=== PATIENT | female | born 1970 | race Caucasian/White ===

== ENCOUNTER 2025-04-26 20:27 | Emergency (ER) | payer OTHER, SELFPAY ==
[2025-04-26 20:33] VITALS: BP 112/48; PULSE 76; RESP 18; TEMP 36.9; O2SAT 97; BMI 22.9
--- OUTSIDE RECORDS SUMMARY | 2025-04-26 21:19 | XMS_ITS | Clinical Summary ---
Author Organization [facility] Address [address] [place] [address] Phone Care Team Providers Care Veterinary Technician Instructor Name Role Phone Amilcar Rice MD Primary Care Provider [phone] Allergies Active Allergy Reactions Criticality Noted Date Comments Metoclopramide Unknown 09/08/2020 Sensitivity feels off Sensitivity feels off Sensitivity feels off Sensitivity feels off Pollen Extracts 03/17/2018 Seasonal allergies Medications fluticasone propionate (FLOVENT DISKUS) 50 mcg/actuation diskus inhaler Inhale 1 puff by mouth. Active albuterol HFA (PROAIR HFA ; PROVENTIL HFA ; VENTOLIN HFA) 90 mcg/actuation inhaler 2 puffs inhaled q 4-6h as needed for chest tightness/SOB 05/01/20 21 Active albuterol 2.5 mg /3 mL (0.083 %) nebulizer solution albuterol sulfate 2.5 mg/3 mL (0.083 %) solution for nebulization Active buPROPion XL (WELLBUTRIN XL) 300 mg 24 hr tablet Take 1 tablet (300 mg total) by mouth 1 (one) time each day in the morning. 01/30/20 25 Active ondansetron ODT (ZOFRAN-ODT) [address] 1 TABLET ON THE TONGUE AND ALLOW TO DISSOLVE TWICE A DAY NEEDED FOR 7 DAYS 08/30/20 24 Active pantoprazole (Protonix) 20 mg EC tablet tablet(s) oral 05/01/20 21 Active predniSONE (DELTASONE) 10 mg tablet 4 Tablet(s) by mouth as needed 4 days then stop for asthma exacerbation 05/01/20 21 Active umeclidinium (Incruse Ellipta) 62.5 mcg/actuation inhalation 1 puff inhaled once a day 05/01/20 21 Active umeclidinium (Incruse Ellipta) 62.5 mcg/actuation inhalation Inhale by mouth. Ac tive valACYclovir (VALTREX) 1 gram tablet Take 1 tablet (1,000 mg total) by mouth. 05/22/20 21 Active Encounters Date Type Department Care Team Description 03/19/2025 Telephone [facility] [address] [place] [address] Amilcar Rice MD Referral (Attempt to reach pt, no response. aek) 02/16/2025 4:00 PM EDT Office Visit Orthopedic Surgery - [place] [address] [place] [address] Lo Avina, PA Bilateral carpal tunnel syndrome (Primary Dx); Acute pain of right shoulder from Last 3 Months Medical History Medical History Date Comments Bilateral carpal tunnel syndrome Abnormal uterine bleeding Arthritis Asthma Depression Hand arthritis Inflammatory arthritis Family History Medical History Relation Name Comments Ovarian cancer Aunt Bowel cancer decsd from complications for resection Colon cancer Father Prostate late 6 0s Colon polyps Sister with spontaneou s mutation and not genetic Relation Name Status Comments Aunt (Age 70) Father Sister Alive Social History Tobacco Use Types Packs/Day Years Used Date Smoking Tobacco: Never Smokeless Tobacco: Never Alcohol Use Standard Drinks/Week Comments Yes 0 (1 standard drink = 0.6 oz pur e alcohol) Comments Unknown Sex and Gender Information Value Date Recorded Sex Assigned at Not on file Legal Sex Female 6:57 AM EST Gender Identity Not on file Sexual Orientation Not on file Obstetrics History Last Filed Vital Signs Vital Sign Reading Time Taken Comments Blood Pressure 103/60 03/26/2023 1:57 PM EDT Pulse 71 03/26/2023 1:57 PM EDT Temperature - - Respiratory Rate - - Oxygen Saturation - - Inhaled Oxygen Concentration - - Weight 56.7 kg (125 lb) 02/16/2025 4:11 PM EDT Height 157.5 cm (5' 2 ) 02/16/2025 4:11 PM EDT Body Mass Index 22.86 02/16/2025 4:11 PM EDT Plan of Treatment Health Maintenance Due Date Last Done Comments Breast Cancer Screening 1969 Hepatitis B Vaccines (1 of 3 - 19+ 3-dose series) 1988 Pneumococcal Vaccine: 50+ Ye ars (1 of 2 - PCV) 1988 Pneumococcal Vaccine: Pediat rics (0 to 5 Years) and At-Risk Patients (6 to 64 Years) (1 of 2 - PCV) 1988 Cervical Cancer Screening: HPV 1990 Zoster Vaccines (1 of 2) 2019 Colorectal Cancer Screening: Colonoscopy 10/14/2022 Depression Screening 10/14/2022 HIV Screening 10/14/2022 Hepatitis C Screening 10/14/2022 Social Influencers of Health Screening 10/14/2022 COVID-19 Vaccine (1 - 2023-2 5 season) 2024 Influenza Vaccine (Season Ended) 2025 DTaP,Tdap,and Td Vaccines (2 - Td or Tdap) 06/10/2028 06/10/2018 HIB Vaccines Aged Out No longer eligi ble based on patient's age to complete this topic HPV Vaccines Aged Out No longer eligi ble based on patient's age to complete this topic Hepatitis A Vaccines Aged Out No long er eligible based on patient's age to complete this topic IPV Vaccines Aged Out No longer eligi ble based on patient's age to complete this topic MMR Vaccines Aged Out No longer eligi ble based on patient's age to complete this topic Meningococcal ACWY Vaccine Aged Out N o longer eligible based on patient's age to complete this topic Meningococcal B Vaccine Aged Out No l onger eligible based on patient's age to complete this topic RSV Immunization Patients Un nathaniel 20 months Aged Out No longer eligible b ased on patient's age to complete this topic Varicella Vaccines Aged Out No longer eligible based on patient's age to complete this topic Procedures Procedure Name Priority Date/Time Associated Diagnosis Comments MN INJECTION CARPAL TUNNEL THERAPEUTIC Routine 02/16/2025 4:00 PM EDT Bilateral carpal tunnel syndrome from Last 3 Months Results * MN INJECTION CARPAL TUNNEL THERAPEUTIC (02/16/2025 4:00 PM EDT) Narrative Lo Avina PA - 02/16/2025 4:00 PM EDT JERRY Pan ? 02/17/2025 ??8:37 AM Hand / UE Inj/Asp: bilateral carpal tunnel for carpal tunnel syndrome Details: 25 G needle, volar approach Medications (Right): 0.5 mL lidocaine 1 %; 20 mg triamcinolone acetonide 40 mg/mL Medications (Left): 0.5 mL lidocaine 1 %; 20 mg triamcinolone acetonide 40 mg/mL Informed Consent: ??Laterality: ??Bilateral ??Relevant images/test results available and reviewed: yes ?Health status cleared: ??Yes ??Procedure/treatment, purpose, treatment alternatives, risks/potential complications and benefits explained: yes ?Risk/complications/benefits details: ??Risks of infection, thinning of the skin and temporary skin discoloration discussed. ??Discussed risks of temporary increased pain after injection and swelling and mild redness at injection site for couple days. ??Explained occasionally cortisone injection can cause facial flushing temporarily. ??Benefits pain management. ??For postop injection pain ice, Tylenol and/or NSAIDs if patient can take ??Patient questions answered: yes ?Patient agrees, verbalizes understanding, and wants to proceed: yes ?Consent given by: ??Patient ??Informed consent discussion completed by Physician/DAREK with patient: ?? Verbal ??Pre-procedure timeout performed: yes ?? us Lo EDWARDS IN CLINIC/BEDSIDE ORDERABLES Final Result from Last 3 Months Insurance [employer] Care Teams Veterinary Technician Instructor Relationship Specialty Start Date End Date Amilcar Rice MD [address] [place] [address] PCP - General Internal Medicine 01/22/20
--- NOTE | 2025-04-26 22:40 | ED_ITS ---
HPI - Wound/Laceration General Chief Complaint: Wound/Laceration Stated Complaint: left hand laceration Time Seen by Provider: 04/26/25 22:12 Source: patient Mode of arrival: ambulatory Limitations: no limitations History of Present Illness ED Provider: HPI narrative: Patient is presenting with laceration to her left hand over the 1st webspace, this is not a 4.5 cm laceration this is a 1.5 cm laceration, tetanus is within 7 years but patient would like to be reduced at because this was advancing wire, no other injuries, she has bilateral carpal tunnel what steroid injections. Related Data Allergies Allergy/AdvReac Type Severity Reaction Status Date / Time No Known Allergies Allergy Verified 04/26/25 20:40 Review of Systems Constitutional: Constitutional: Reports as per [facility] Social History Social History Smoked in Last 30 Days: No Use of substances other than those prescribed or required for medical reasons: No Advance Directives: No Advance Directives Information Provided: No Patient : No Physical Exam Vital Signs: Vital Signs: Last Vital Signs Temp 98.4 F 04/26/25 20:33 Pulse 76 04/26/25 20:33 Resp 18 04/26/25 20:33 BP 112/48 L 04/26/25 20:33 Pulse Ox 97 04/26/25 20:33 O2 Del Method Room Air 04/26/25 20:33 BMI result Body Mass Index 22.9 Const: Other: Examination of left upper extremity full range of motion of the shoulder, elbow, wrist, she has full-thickness 1.5 cm laceration with bleeding that is controlled, radial ulnar pulses +2, no deficit radial ulnar median motor or sensory Medical Decision Making Medical Decision Making [facility] Narrative: This is a 1.5 cm laceration, 1st webspace left hand, there is no evidence for any tendinous injury, bony injury, no indication for x-rays, patient works with farm animals, recommend laceration but she did not feel that she is going to tolerate lidocaine injection so we opted out for a Dermabond and Steri-Strips see my discharge instructions, tetanus updated per her request. Procedures Laceration Laceration 1: Site: hand Side (If applicable): left Description: linear Depth: simple, single layer Pre-repair: irrigated extensively Size (cm): other (Dermabond, Steri-Strips) Discharge Plan Discharge Clinical Impression: Laceration Patient Disposition: Home, Self-Care Additional Instructions: You were evaluated with laceration to left hand, after discussion with you we opted out for closure of the skin with Dermabond and Steri-Strips, this was done after vigorous washing out of the wound, tetanus shot was also updated it is good for the next 10 years, you can zoey Tylenol as needed for pain or Motrin, you can keep the dressing applied in place for the rest of the day until tomorrow, thereafter you can remove, the area can get wet but do not pick at the Steri-Strips, as they come loose use scissors to trim the edges, it is very unlikely that this will get infected but if he see redness that is spreading, discharge of pus come back to the ER for re-evaluation. Otherwise follow up with the PCP. Referrals: Amilcar Rice MD [Primary Care Provider] - 1 week Print Language: Italian
[2025-04-26 22:49] VITALS: BP 106/62; PULSE 61; RESP 18; TEMP 36.7; O2SAT 97
[2025-04-26] MEDS: Diphth,Pertus(ACell),Tet Adult 0.5 ML SYRINGE IM (22:54)
== END 2025-04-26 23:00 | disposition home or self-care (01) ==
PROVIDERS: Emergency Provider Emergency Medicine; PCP Internal Medicine
DX: S61.412A Laceration without foreign body of left hand, initial encounter (principal); W26.8XXA Contact with other sharp object(s), not elsewhere classified, initial encounter; Y93.89 Activity, other specified; Y92.73 Farm field as the place of occurrence of the external cause; Y99.0 Civilian activity done for income or pay; Z23 Encounter for immunization
CPT/HCPCS: 12001; 90471; 90715; 99284

== ENCOUNTER 2025-07-22 23:32 | Emergency (ER) | payer OTHER, SELFPAY ==
--- NOTE | ~2025-07-22 | CT_ITS ---
CLINICAL HISTORY: head trauma CT head without contrast Comparison: None provided Findings: BRAIN: No acute infarct, hemorrhage, or mass effect. No abnormal atrophy. CSF SPACES: No hydrocephalus or effacement of basal cisterns. SKULL: No calvarial fracture. SINUSES: No significant mucosal thickening or effusion on limited views. ORBITS: Limited views are unremarkable. OTHER: Negative. IMPRESSION: 1. No acute intracranial findings. This document has been electronically signed by: Ashlee Ghotra MD on 07/23/2025 01:56:49
--- NOTE | 2025-07-22 23:34 | ED_ITS ---
HPI - Head Injury General Chief complaint: General Medical Stated complaint: head strike Time Seen by Provider: 07/22/25 23:46 Source: patient Limitations: no limitations History of Present Illness ED Provider: Valerie Bruner PA-C HPI Narrative: 55-year-old female who is otherwise healthy presents after head contusion. Patient was trying to medicate her horse, the horse stood up abruptly and struck her in the back of the head with a it is head. No loss consciousness, the patient does not use a blood thinner. Patient has developed nausea with a generalized headache. Denies dizziness, or neck pain. Related Data Allergies Allergy/AdvReac Type Severity Reaction Status Date / Time No Known Allergies Allergy Verified 07/22/25 23:39 Review of Systems Review of Systems: Yes all other systems are reviewed and are negative Constitutional: Constitutional: Denies fatigue, Denies fever(s) and Reports headache(s) ENT: Denies dizziness, Reports headache(s) and Denies neck pain Cardiovascular: Cardiovascular: Denies chest pain and Denies dyspnea Respiratory: Respiratory: Denies dyspnea Gastrointestinal: Gastrointestinal: Denies abdominal pain, Reports nausea and Denies vomiting Musculoskeletal: Musculoskeletal: Denies neck pain Neurologic: Denies dizziness and Reports headache(s) Endocrine: Endocrine: Denies fatigue PMFSH Past Medical History Attestation statement: The following information was validated with the patient. Physical Exam Vital Signs: Vital Signs: Last Vital Signs Temp 98.1 F 07/23/25 02:36 Pulse 69 07/23/25 02:36 Resp 18 07/23/25 02:36 BP 105/58 L 07/23/25 02:36 Pulse Ox 96 07/23/25 02:36 O2 Del Method Room Air 07/23/25 02:36 BMI result Body Mass Index 22.9 Const: Other: Alert well-appearing Orientation/consciousness: patient oriented x3 Neck: Neck: Yes full ROM Resp: Effort & Inspection: normal respiratory effort Cardio: Other: Normal peripheral perfusion Skin: Other: Warm dry no rash Neuro: General: patient oriented x3, gait normal, no focal motor deficits and CN's II-XI intact bilaterally Psych: Other: Cooperative Course Course Course Narrative: This is a RME preformed in triage by Marylin Ballard PA-C. Date:07/22/25, time 1134 pm. Patient presents with head injury. Just prior to arrival, pt's horse head smashed into the back of her head. PE: Cranial nerves II through XII intact, speech fluent and appropriate, no mnrfqt-[id number] ataxia, no dajl-qj-zndu ataxia, no palmar drift, strength 5+ throughout, sensory intact throughout to soft touch and equal bilaterally, no scalp hematoma or laceration, no midline tenderness step-offs or deformities of entire spine moving neck in all degrees with no difficulty, patient is taking 650 mg of tylenol. + headache (5/10), and light sensitivity tight eyes no visual changes no n/v, no prior concussions. no other injuries or pain. No anticoagulation. Work UP: Head CT Will defer full ROS and PE to treating provider. Patient will continued to be monitored in the interim. Medical Decision Making Medical Decision Making MDM Narrative: 55-year-old female who is otherwise healthy presents after head contusion. Patient was trying to medicate her horse, the horse stood up abruptly and struck her in the back of the head with a it is head. No loss consciousness, the patient does not use a blood thinner. Patient has developed nausea with a generalized headache. Denies dizziness, or neck pain. No chronic issues History: Per patient I have considered the following differential diagnoses: Concussion, intracranial hemorrhage, skull fracture Plan: CT of the brain ordered from triage, there was no skull fracture there was no bleeding. We will send the patient with a return precautions and information to read about in regard to concussion. The patient is not asking for any pain or nausea medicine, the nausea subsided, she took Tylenol pre arrival. I have independently reviewed the following tests: CT brain: Findings: BRAIN: No acute infarct, hemorrhage, or mass effect. No abnormal atrophy. CSF SPACES: No hydrocephalus or effacement of basal cisterns. SKULL: No calvarial fracture. SINUSES: No significant mucosal thickening or effusion on limited views. ORBITS: Limited views are unremarkable. OTHER: Negative. IMPRESSION: 1. No acute intracranial findings. Differential Diagnosis Differential Diagnoses: The differential diagnosis associated with the presentation includes See medical decision making Admission/Observation Consideration of admission/observation: Escalation of care including admission/observation considered Not applicable Radiology Impression Discussion of test interpretation with radiology: I have reviewed the radiologist's reading. Discharge Plan Discharge Clinical Impression: Contusion of head Patient Disposition: Home, Self-Care Instructions: Concussion (ED), Contusion in Adults (ED), Post Concussion Syndrome (ED) Additional Instructions: The CT scan of your brain was negative for bleeding or skull fracture. See home care instructions. You may also have a concussion, I provided you with information to read about. I also provided you with information about postconcussion syndrome, we do not expect this, however it could happen. In regard to the chance of having a delayed onset spontaneous intracranial bleed, symptoms that you would monitor for include the following: Onset of spontaneous severe headache, a headache where position change increased his severity, active vomiting, extreme pain and rigidity of your posterior neck. If you develop any of these symptoms seek medical attention. Stand Alone Forms: Work/School Release Interventions: ED Discharge Assessment Last Done: 07/23/25 02:36 Discharge Date/Time: 07/23/25 02:37 Print Language: Divehi
[2025-07-22 23:37] VITALS: BP 136/78; PULSE 82; RESP 18; TEMP 36.7; O2SAT 96; BMI 22.9
--- OUTSIDE RECORDS SUMMARY | 2025-07-23 00:01 | XMS_ITS | Clinical Summary ---
Author Organization [facility] Address [address] [address] Phone Care Team Providers Care Label Drier Name Role Phone Brandy Crouch Primary Care Provider [phone] Allergies Active Allergy Reactions Criticality Noted Date Comments Metoclopramide 09/08/2020 Sensitivity feels off Medications albuterol 2.5 mg /3 mL (0.083 %) nebulizer solution albuterol sulfate 2.5 mg/3 mL (0.083 %) solution for nebulization Active fluticasone furoate-vilante roL (BREO ELLIPTA) 200-25 mcg/dose inhaler Breo Ellipta 200 mcg-25 mcg/dose powder for inhalation Active FLOVENT HFA 110 mcg/actuation inhaler TAKE 1 PUFF BY MOUTH TWICE A DAY 2 Active umeclidinium (INCRUSE ELLIPTA) 62.5 mcg/actuation inhalation Incruse Ellipta 62.5 mcg/actuation powder for inhalation 1 Active cholecalciferol (VITAMIN D3) 2,000 unit tablet Take 2,000 Units by mouth daily. Active albuterol 90 mcg/actuation inhaler Inhale 2 puffs into the lungs every 6 (six) hours as needed for wheezing. Active buPROPion (WELLBUTRIN XL) 150 MG ER 24 hr tablet Take 150 mg by mouth daily. Active predniSONE (DELTASONE) 10 MG tablet Take 10 mg by mouth. prn 4 Active Active Problems Problem Noted Date Diagnosed Date Inflammatory arthritis 10/28/2024 Overview (10/29/2024): +++ synovitis / fusiform swelling 5th PIPs bl; bl CTS; bl elbow tendonitis; AM stiffness 45 minutes Low back and symmetric small joint pain of fingers and toes ? 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 Further investigations as below; will obtain dedicated plain films of sacroiliac joints pending lab findings. Dx, px, and general treatment approach reviewed with patient today though she is aware that we will need to pursue additional w/u. Written information on methotrexate provided for patient review today; suspect she will ultimately require addition of anti-TNF or other biologic agent for optimal control of disease activity including axial involvement. Family History Medical History Relation Comments Colon cancer Father Heart attack Father Prostate cancer Father Throat cancer Father Colon cancer Maternal Aunt Ovarian cancer Maternal Aunt Hyperlipidemia Mother Stroke Mother Tachycardia Sister Relation Status Comments Father Maternal Aunt Mother Sister Social History Tobacco Use Types Packs/Day Years Used Date Smoking Tobacco: Never Smokeless Tobacco: Never Alcohol Use Standard Drinks/Week Comments Yes 0 (1 standard drink = 0.6 oz pur e alcohol) socially Education Answer Date Recorded Are you interested in more education? Not on leesa e 03/17/2023 Are you concerned about learning? Not on file 03/17/2023 No 03/17/2023 No 03/17/2023 Digital Access Answer Date Recorded No 04/07/2023 No 04/07/2023 Reliable internet access at home? Not on file 04/07/2023 Device with a working camera? Not on file Comments Unknown Sex and Gender Information Value Date Recorded Sex Assigned at Not on file Legal Sex Female 6:06 PM EST Gender Identity Not on file Sexual Orientation Not on file Last Filed Vital Signs Vital Sign Reading Time Taken Comments Blood Pressure 106/58 10/28/2024 10:09 AM EST Pulse 63 10/28/2024 10:09 AM EST Temperature - - Respiratory Rate - - Oxygen Saturation 98% 10/28/2024 10:09 AM EST Inhaled Oxygen Concentration - - Weight 56.7 kg (125 lb) 10/28/2024 10:09 AM EST Height 157.5 cm (5' 2 ) 10/28/2024 10:09 AM EST Body Mass Index 22.86 10/28/2024 10:09 AM EST Plan of Treatment Health Maintenance Due Date Last Done Comments LIPID PANEL 1969 DEPRESSION SCREENING 1981 HEPATITIS C SCREENING 1987 HIV ONE-TIME SCREENING (18-6 5 YEARS) 1987 PAP SMEAR 1990 MAMMOGRAM 2009 COLOGUARD 2014 COLONOSCOPY 2014 COLORECTAL CANCER SCREENING 2014 FIT TEST 2014 FOBT 2014 SIGMOIDOSCOPY 2014 VIRTUAL COLONOSCOPY 2014 PNEUMOCOCCAL VACCINES (50+ y ears) (1 of 1 - PCV) 2019 ZOSTER VACCINES (1 of 2) 2019 COVID-19 VACCINE (1 - 2023-2 5 season) 2024 Adult Td,Tdap Booster 06/10/2028 06/10/2018 SMOKING STATUS SCREENING (On ce After 26 Yrs) Completed 10/28/2024 HEPATITIS A VACCINES Aged Out No long er eligible based on patient's age to complete this topic HIB VACCINES Aged Out No longer eligi ble based on patient's age to complete this topic MENINGOCOCCAL VACCINES (ACWY) Aged Out No longer eligible based on patient's age to complete this topic MENINGOCOCCAL VACCINES (B) Aged Out N o longer eligible based on patient's age to complete this topic Medical Devices Not on file [place] [address] NON NSPG PCP [facility] [employer] NON NSPG PCP [facility] [employer] NON NSPG PCP [facility] [employer] NON NSPG PCP [facility] [facility] NON NSPG PCP S[facility] NON NSPG PCP [facility] [address] [place] [id number] Care Teams Label Drier Relationship Specialty Start Date End Date Brandy Crouch PA [address] [place] [id number] PCP - General Fixed Wing Aircraft Flight Engineer 06/14/22 Additional Source Comments The information contained in this document represents components of the legal health record. It is not the complete legal health record.[facility]
--- OUTSIDE RECORDS SUMMARY | 2025-07-23 00:01 | XMS_ITS ---
Author Name [facility] Organization Unknown Allergies Allergen Reaction Severity Comment Documented Date Source Statu s METOCLOPRAMIDE Sensitivity f eels off, ,Sensitivity feels off 09/08/2020 [facility] active POLLEN EXTRACTS Seasonal allergies 03/17/2018 [facility] active Problems Problem Status Onset Date Problem Type Date of Resolution Source Other asthma active ProblemAct CT_PHY SONE Left otitis media, unspecified otitis media type active EncounterDiagnosisAct CT_[facility]AL EUC Unspecified contact dermatitis, unspecified cause active 2024-01-26 ProblemAct [facility]YS[facility] Wheeze active EncounterDiagnosisAct [facility] Acute cough active EncounterDiagnosisAct [facility] Immunizations Vaccine Date Source Lot Number Status Tdap 06/10/2018 [facility] [id number] completed Encounters Encounter Type Encounter Reason Primary Diagnosis Location Date Ambulatory Cough [facility] 03/24/20 Ambulatory [facility] 02/02/2025 Care Team Organization Name Specialty Phone Email Start Date End [facility] te [facility] 02/02/2025 [facility] 024 07/18/2025 [facility] 024
--- OUTSIDE RECORDS SUMMARY | 2025-07-23 00:01 | XMS_ITS | Encounter Summary ---
Author Organization [facility] Address [address] [place] [address] Phone Care Team Providers Care Bolt Sawyer Name Role Phone Brandy Crouch Primary Care Provider + [phone] Encounter Details Date Type Department Care Team (Late st Contact Info) Description 10/28/2024 Telephone [facility] Rheumatology [address] [place] [address] Victoria Harman MD, MPH [address], [address] [place] [address] [email or web address] Social History Tobacco Use Types Packs/Day Years [...] on file Sexual Orientation Not on file documented as of this encounter Plan of Treatment Not on file documented as of this encounter Visit Diagnoses Not on filedocumented in this encounter Care Teams Bolt Sawyer Relationship Specialty Start Date End Date Brandy Crouch PA [address] [id number] PCP - General Internal Controls Specialist 06/14/22 documented as of this encounter Additional Source Comments The information contained in this document represents components of the legal health record. It is not the complete legal health record.[facility]
--- OUTSIDE RECORDS SUMMARY | 2025-07-23 00:02 | XMS_ITS | Clinical Summary ---
Author Organization [address] Address [address] [place] [id number] Care Team Providers Care Quality Assurance Tester Name Role Phone Pcp, Does Not Have A Primary Care Provider Unava ilable Allergies Active Allergy Reactions Criticality Noted Date Comments Metoclopramide Unknown 09/08/2020 Sensitivity feels off Sensitivity feels off Pollen Extracts Unknown 03/17/2018 Seasonal allergies Medications albuterol (PROVENTIL, VENTOLIN) 2.5 mg /3 mL (0.083 %) nebulizer solution albuterol sulfate 2.5 mg/3 mL (0.083 %) solution for nebulization Active buPROPion XL (WELLBUTRIN XL) 300 mg 24 hr tablet Take 1 tablet (300 mg total) by mouth every morning. 01/30/20 25 Active cholecalciferol, vitamin D3, 50 mcg (2,000 unit) tablet Take 1 tablet (2,000 Units total) by mouth daily. Active fluticasone propionate (FLOVENT DISKUS) 50 mcg/actuation diskus inhaler Inhale 1 puff into the lungs. Active fluticasone furoate-vilanteroL (BREO ELLIPTA) 200-25 mcg/dose blister powder for inhalation Breo Ellipta 200 mcg-25 mcg/dose powder for inhalation Active benzonatate (TESSALON) 200 mg capsuleIndications :Left otitis media, unspecified otitis media type,Wheeze Take 1 capsule (200 mg total) by mouth 3 (three) times daily as needed for cough. 30 capsule 02/03/20 25 Active Additional Information Patient not taking.Reported on 03/24/2025 ondansetron (ZOFRAN-ODT) 4 mg disintegrating tablet 1 tablet (4 mg total). 08/30/20 Active predniSONE (DELTASONE) 10 mg tablet Take 1 tablet (10 mg total) by mouth. 09/02/20 Active promethazine-dextr omethorphan (PROMETHAZINE-DM) 6.25-15 mg/5 mL syrupIndications:B ronchitis Take 5 mLs by mouth nightly. 70 mL 03/24/20 Active Active Problems Problem Noted Date Diagnosed Date IBS (irritable bowel syndrome) 03/24/2025 Severe persistent asthma dep endent on systemic steroids (HC Code) 03/24/2025 Inflammatory arthritis 10/28/2024 Overview (03/24/2025): +++ synovitis / fusiform swelling 5th PIPs bl; bl CTS; bl elbow tendonitis; AM stiffness 45 minutes Low back and symmetric small joint pain of fingers and toes ? psoriasis (no formal dx) Asthma 12/10/2017 Immunizations Immunization Administration Dates Next Due Tdap 06/10/2018 Family History Relation Name Status Comments Father Alive Mother Alive Social History Tobacco Use Types Packs/Day Years Used Date Smoking Tobacco: Never Smokeless Tobacco: Never Tobacco Cessation:Counseling Given: Not Answered Alcohol Use Standard Drinks/Week Comments Not Currently 0 (1 standard drink = 0.6 oz pur e alcohol) Comments No Sex and Gender Information Value Date Recorded Sex Assigned at Not on file Legal Sex Female 9:49 AM EDT Gender Identity Not on file Sexual Orientation Not on file Last Filed Vital Signs Vital Sign Reading Time Taken Comments Blood Pressure 107/58 03/24/2025 2:14 PM EDT Pulse 87 03/24/2025 2:14 PM EDT Temperature 37.2 C (98.9 F) 03/24/2025 2:14 PM EDT Respiratory Rate 16 03/24/2025 2:14 PM EDT Oxygen Saturation 8% 03/24/2025 2:14 PM EDT Inhaled Oxygen Concentration - - Weight 56.7 kg (125 lb) 03/24/2025 2:14 PM EDT Height - - Body Mass Index - - Plan of Treatment Health Maintenance Due Date Last Done Comments HIV screening 1982 Hepatitis C screening 1987 Pneumococcal Vaccine (50+ ye ars) (1 of 2 - PCV) 1988 Cervical cancer screening 1990 Breast cancer screening 2009 Lipid disorder screening 2009 Colon cancer screening, Colonoscopy 2014 Diabetes screening 2014 Shingles vaccine (Shingrix) (1 of 2 - Shingrix (RZV) 2 Dose Standard Series) 2019 Covid-19 vaccine series ( - 2023- season) 2025 Influenza vaccine 07/12/2025 Tetanus adult (Td q 10,TDAP once) 06/10/2028 018 RSV Immunization (1 - 1-dose 75+ series) 2044 Meningococcal B Vaccine Aged Out No l onger eligible based on patient's age to complete this topic Meningococcal Vaccine Aged Out No eileen kathy eligible based on patient's age to complete this topic Insurance [facility] [facility] [employer] [facility] [place] [address] Care Teams Quality Assurance Tester Relationship Specialty Start Date End Date Pcp, Does Not Have A PCP - General 02/02/25
--- OUTSIDE RECORDS SUMMARY | 2025-07-23 00:02 | XMS_ITS | Clinical Summary ---
Author Organization [facility] Address [address] [place] [address] Care Team Providers Care Mold Chipper Name Role Phone Amilcar Rice MD Primary Care Provider [phone] Allergies Active Allergy Reactions Criticality Noted Date Comments Metoclopramide 09/08/2020 Sensitivity feels off Medications Medication Sig Dispensed Refills Start Date End Date Status albuterol 108 (90 Base) MCG/ACT inhaler 2 PUFFS BY MOUTH EVERY 4 HOURS NEEDED 0 06/08/2021 Active clotrimazole-betamethas one (LOTRISONE) cream APPLY TOPICALLY TO AFFECTED AREA TWICE DAILY FOR NO MORE THAN 10 DAYS 0 06/15/2021 Active fluconazole (DIFLUCAN) 150 MG tablet TAKE 1 TAB NOW 0 06/15/2021 Active Flovent HFA 110 MCG/ACT inhaler 0 06/19/2021 Active fluticasone (Flovent Diskus) 50 MCG/BLIST diskus inhaler Inhale 1 puff into the lungs. 0 Active ipratropium-albuterol (DUO-NEB) 0.5-2.5 mg/mL nebulizer Inhale 3 mL into the lungs. 0 02/14/2021 Active nitrofurantoin, macrocrystal-monohydrat e, (MACROBID) 100 MG capsule TAKE 1 CAPSULE BY MOUTH TWICE A DAY FOR 5 DAYS 0 05/22/2021 Active ondansetron (ZOFRAN-ODT) 8 MG disintegrating tablet TAKE 1 TABLET BY MOUTH TWICE A DAY NEEDED FOR 5 DAYS 0 05/22/2021 Active triamcinolone acetonide (KENALOG-40) 40 MG/ML injection Inject 40 mg into the muscle. 0 05/01/2021 Active Incruse Ellipta 62.5 MCG/INH AEPB TAKE 1 PUFF BY MOUTH EVERY DAY 0 06/09/2021 Active Active Problems Problem Noted Date Diagnosed Date Abnormal uterine bleeding (AUB) 12/10/2017 Asthma 12/10/2017 Social History Tobacco Use Types Packs/Day Years Used Date Smoking Tobacco: Never Smokeless Tobacco: Never Alcohol Use Standard Drinks/Week Comments Yes 0 (1 standard drink = 0.6 oz pur e alcohol) social Sex and Gender Information Value Date Recorded Sex Assigned at Not on file Gender Identity Not on file Sexual Orientation Not on file Last Filed Vital Signs Vital Sign Reading Time Taken Comments Blood Pressure 118/54 06/21/2021 11:30 AM EDT Pulse 62 06/21/2021 11:30 AM EDT Temperature 36.6 C (97.9 F) 06/21/2021 11:30 AM EDT Respiratory Rate - - Oxygen Saturation 100% 06/21/2021 11:30 AM EDT Inhaled Oxygen Concentration - - Weight 51.3 kg (113 lb) 06/21/2021 11:30 AM EDT Height 157.5 cm (5' 2 ) 06/21/2021 11:30 AM EDT Body Mass Index 20.67 06/21/2021 11:30 AM EDT Plan of Treatment Health Maintenance Due Date Last Done Comments Hepatitis B Vaccines (1 of 3 - 3-dose series) 1969 Hepatitis C Screening 1969 COVID-19 Vaccine (#1) 1969 Depression Screening 1981 Preventative Health Evaluation 1987 DTap / Tdap / Td (1 - Tdap) 1988 Cervical Cancer Screening (P ap Smear) 1990 Colon Cancer Screening (Colonoscopy) 2014 Breast Cancer Screening (Mammogram) 2019 Shingrix-Zoster Vaccine (1 of 2) 2019 Influenza Vaccine (#1) 2025 Pneumococcal Vaccine Aged Out No long er eligible based on patient's age to complete this topic RSV Ped < 20 months Aged Out No longe r eligible based on patient's age to complete this topic Care Teams Mold Chipper Relationship Specialty Start Date End Date Amilcar Rice MD [address] [place] [address] PCP - General Internal Medicine 06/21/21
[2025-07-23 02:20] VITALS: BP 105/58; PULSE 69; RESP 18; TEMP 36.7; O2SAT 96
[2025-07-23 02:36] VITALS: BP 105/58; PULSE 69; RESP 18; TEMP 36.7; O2SAT 96
== END 2025-07-23 02:37 | disposition home or self-care (01) ==
PROVIDERS: Emergency Provider Emergency Medicine; PCP Internal Medicine
DX: S00.83XA Contusion of other part of head, initial encounter (principal); R51.9 Headache, unspecified; R11.0 Nausea; W55.12XA Struck by horse, initial encounter; Y93.89 Activity, other specified; Y92.89 Other specified places as the place of occurrence of the external cause; Y99.8 Other external cause status
CPT/HCPCS: 70450; 99284

== ENCOUNTER → 2025-07-23 00:05 | Outpatient (BNV) | payer OTHER, SELFPAY | PROVIDERS: PCP Internal Medicine; Visit Provider Student in an Organized Health Care Education/Training Program | DX: S09.90XA Unspecified injury of head, initial encounter (principal) | CPT/HCPCS: 70450 ==